=== PATIENT | male | born 1995 | race Caucasian/White ===

== ENCOUNTER 2025-03-22 10:44 | Outpatient (AMB) | payer OTHER, SELFPAY ==
--- NOTE | 2025-03-22 10:56 | A.OFFPC_ITS ---
Vital Signs 03/22/25 11:08 Height 5 ft 11.85 in Weight 281 lb 6 oz BMI 38.3 BP 119/67 Blood Pressure Location Rt brachial Position Sitting Pulse 85 Pulse Source Pulse Oximeter Temp 98.3 F Temp Source Oral Pulse Oximetry (%) 97 Oxygen Delivery Method Room Air Intake Visit Reasons: ACCOUNTING/FINANCE TUTOR-Obesity Intake Note: Wants to discuss depression and increased fatigue Accompanied by: Self / Same As Patient Allergies No Known Allergies Allergy (Verified 03/22/25 10:56) Medication List - Last Reconciled 03/24/25 by Corey Wong MD aripiprazole 15 mg PO DAILY ciclopirox 8% topical BEDTIME econazole nitrate 1% appl topical BID escitalopram oxalate 20 mg PO DAILY gabapentin 400 mg PO BID guanfacine ER 4 mg PO BEDTIME haloperidol 0.5 mg PO Q12H PRN hydroxyzine pamoate 50 mg PO Q6H PRN metoprolol succinate ER 50 mg PO BEDTIME trazodone 100 mg PO BEDTIME PRN Tobacco use date assessed: 03/22/25 Dental Screening Dental Screen Date: 03/22/25 Did you have a dental visit in the last 12 months?: Yes Was dental information given to patient?: Patient has dentist HPI HPI Comments History of Present Illness Details History of Present Illness The patient is a 29 year old male presenting with depression and to establish care. Depression and Anxiety: The patient reports ongoing depression for which his current treatments are not working. He has a history of hospitalization for homicidal ideations, depression, anxiety, and panic attacks. He recently completed an outpatient program in December and last saw his psychiatrist, Dr. Mejía, in January, who manages his medications. He has an appointment with a therapist later today. Tourette's Syndrome: The patient was diagnosed with Tourette's syndrome at age 8. His symptoms include motor tics such as shoulder tics, vocal tics like grunting, and echolalia. The condition is mostly controlled but not completely. Tachycardia: The patient has a history of high heart rate, for which he takes metoprolol. Medication-induced Restlessness: The patient experienced restlessness and an inability to sit still after being on a medication referred to as Breilart. He currently takes gabapentin for this symptom, which he finds helpful. Dermatophyte Infections: The patient reports having a fungal infection on his feet and a nail fungus on his toes. He uses econazole nitrate and ciclopirox for these conditions. Sleep Disturbance: Although the patient does not have trouble sleeping, he reports not waking up feeling refreshed. His aunt recently observed him gasping for air as he was dozing off on the couch. Surgical History: - Cubital tunnel release Medications: - Metoprolol: for high heart rate, taken at nighttime. - Trazodone: for sleep and depression, t aken as needed. - Hydroxyzine: for anxiety. - Haloperidol 0.5 mg: for Tourette's syn drome. - Guanfacine: for Tourette's syndrome. - Gabapentin 400 mg twice a day: for res tlessness. - Citalopram (Lexapro) 20 mg once daily: for anxiety and depression. - Econazole nitrate: for fungal infectio n on feet. - Ciclopirox: for nail fungus on toes. - Aripiprazole (Abilify): antipsychotic for depression. - Supplements: Slippery Elm, vitamin D, vitamin B-complex, magnesium drink, artemisia, and black walnut. Social History: - Substance Use: The patient denies smok ing. - He reports occasional alcohol use and use of weed. - He denies use of crack, coke, or PCP. - Employment: He is currently unemployed . 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 - Social Support: He lives by himself bu t has family that lives 10 minutes away. - Hobbies: The patient has started [employer] for fun. Past Medical History - Psychiatric: History of depression, an xiety, and panic attacks. - He has a history of hospitalization fo r homicidal ideations. - He was an outpatient in a program that discharged in December. - Neurological: Tourette's syndrome diag nosed at age 8. - History of medication-induced restless ness, which resolved with gabapentin. - Cardiovascular: History of unspecified high heart rate. - Dermatologic: History of fungal infect ion on feet and toenails. - Medical history: No history of blood p ressure issues, diabetes or seizures. Health Maintenance - Establishing primary care with this vi sit. - Orders placed for baseline laboratory studies including a complete blood count, comprehensive metabolic panel to check liver and kidney function, electrolytes, calcium, magnesium, thyroid function, B12, folate, vitamin D, hepatitis B, hepatitis C, HIV, and syphilis. - An EKG was ordered to evaluate his hea rt, given his medication regimen. - An at-home sleep study was ordered to evaluate for obstructive sleep apnea due to reports of unrefreshing sleep and gasping for air. - Patient is currently under the care of a psychiatrist, Dr. Mejía, for medication management and has a therapist appointment scheduled. med record summary This case concerns a 28-year-old male with a significant pre-existing psychiatric history including autism, Tourette's syndrome, obsessive-compulsive disorder (OCD), attention-deficit/hyperactivity disorder (ADHD), and anxiety.?He presented to the [facility] emergency department on November 01, 2024, due to a mental health crisis. His symptoms included not feeling well since Apri l, increased racing thoughts, thoughts of harming family members, and suicidal ideation, though he denied a specific plan.?The patient has a history of prior psychiatric admissions. The patient's crisis was precipitated by several factors, including significant recent trauma from the loss of both parents; his mother from cancer in 2022 and his father by suicide in 2016.?He reported feeling depressed and anxious for the preceding four months, describing it as an angry type of depression. ?The patient also disclosed daily struggles with family dynamics, feeling controlled and gaslighted by his family.?His sister corroborated that he does not open up to family easily. Upon initial evaluation in the emergency department, the patient was found to be alert and oriented with unremarkable physical exam findings and vital signs, except for a heart rate of 115.?Laboratory and toxicology screenings were normal.?A psychiatric evaluation assessed him with a mixed anxiety and dep ressive disorder and determined he was at a moderate to high risk due to suicidal and homicidal ideation, recent losses, and hopelessness.?While he endorsed suicidal ideation, he denied intent or a plan; however, he endorsed homicidal ideation with a plan but without intent. Due to the assessed risk, the patient was placed on an observation status and a Section 12 hold was initiated for his safety.?The crisis team recommended an inpatient psychiatric level of care (IPLOC) for safety, mood stabilization, and medication evaluation.?The patient and his family agreed with this plan.?While awaiting transfer, he remained calm and cooperative.?On November 02, 2024, after insurance authorization was secured,?he was transferred to an inpatient psychiatric facility. Regarding medications, the patient reportedly had no current prescriptions at the time of his November 01 admission,?but it was noted that his medication, Vraylar, would need to be brought from home.?The treatment plan included engaging in individual and group therapy during his inpatient stay.?Upon discharge, the plan was to arrange outpatient therapy and connect him with community resources. On November 25, 2024, the patient returned to the emergency department complaining of a high heart rate, which he noticed while walking.?He reported having recently started Abilify and had taken Sudafed that day and the day prior.?His pulse was elevated up to 136 bpm.?An EKG showed sinus tachycardia, and a chest X-ray was normal.?The tachycardia was attributed to Sudafed use, anxiety, or recent medication changes. He was discharged home with instructions to avoid Sudafed and follow up with his primary care provider.?Subsequent imaging on February 02, 2025, including X-rays of the cervical and lumbar spine, were unremarkable. In summary, this is a 28-year-old male with a complex psychiatric history who required inpatient stabilization for an acute crisis involving suicidal and homicidal ideation. His diagnoses include Suicidality, Anxiety, Mixed Anxiety and Depressive Disorder, OCD, ADHD, Autism Spectrum Disorder, Tourette's Syndrome, and Tachycardia.?As of his last encounter in November 2024, his medications included Abilify.?He was previously noted to be taking Vraylar.?Continued outpatient psychiatric care for medication management and therapy is recommended. [facility] Medical History (Updated 03/24/25 @ 17:57 by Corey Wong MD) Sleep apnea Depression Obesity Family history of mental disorder ADHD Family History Mother Cancer of fallopian tube Father Depression Suicide Social History Housing: Condominium Patient Tobacco Use Status: Never used Tobacco e-Cigarette/Vaping Use: Never Used service: No Current occupational status: unemployed Cognitive needs: No Hearing needs: No Vision needs: Yes (contacts) Questionnaire PHQ-9 Over the last 2 weeks, how often have you been bothered by any of the following problems? 1. Little interest or pleasure in doing things: nearly every day 2. Feeling down, depressed, or hopeless: nearly every day 3. Trouble falling or staying asleep, or sleeping too much: nearly every day 4. Feeling tired or having little energy: more than half the days 5. Poor appetite or overeating: nearly every day 6. Feeling bad about yourself - or that you are a failure or have let yourself or your family down: nearly every day 7. Trouble concentrating on things, such as reading the newspaper or watching television: more than half the days 8. Moving or speaking so slowly that other people could have noticed. Or the opposite - being so fidgety or restless that you have been moving around a lot more than usual: several days 9. Thoughts that you would be better off or of hurting yourself in some way: several days Total score: 21 Depression Screening Interpretation: Positive Depression Screening Follow-up: Existing condition and In treatment Depression Screening Done: Yes Source: Developed by Drs. Marcellus Arce, Magnolia Londono, Ortiz Ching and colleagues, with an educational oumar from [employer]. Thrive Questionnaire Date Thrive assessed: 03/22/25 I am a: Patient What is your living situation today?: I have a place to live, but I am worried about losing it in the future Within the past 12 months, did the food you bought not last and you didn't have the money to get more?: Never true Within the past 12 months, did you worry whether your food would run out before you got money to buy more?: Never true Do you have trouble paying for medicines?: No Do you have trouble getting transportation to medical appointments?: No Do you have trouble paying your heating and electricity bill?: No Do you have trouble taking care of your child, family member or friend?: No Do you have trouble with day-to-day activities such as bathing, preparing meals, shopping, managing finances, etc.?: Yes Are you currently unemployed and looking for a job?: Yes Are you interested in more education?: No Please select the resources that you would like help with: Job search/training Currently or been in a relationship where the following occur: No concerns reported THRIVE Score: 1 AUDIT C Alcohol Use Questionnaire (AUDIT-C) 1. How often do you have a drink containing alcohol?: 2-4 times a month 2. How many drinks containing alcohol do you have on a typical day when you are drinking?: 1 or 2 3. How often do you have six or more drinks on one occasion?: Never Total Score: 2 MICHAEL-7 AMB Questionnaire MICHAEL-7 Date MICHAEL - 7 assessed: 03/22/25 Feeling nervous, anxious, or on edge: 3 = Nearly every day Not being able to stop or control worryin = Nearly every day Worrying too much about different things: 3 = Nearly every day Trouble relaxin = More than half the days Being so restless that it is hard to sit still: 2 = More than half the days Becoming easily annoyed or irritable: 2 = More than half the days Feeling afraid as if something awful might happen: 3 = Nearly every day Total MICHAEL-7 score (0-4 normal; 5-9 mild; 10-14 moderate; 15-21 severe): 18 Source: Developed by Drs. Marcellus Arce, Magnolia Londono, Ortiz Ching and colleagues, with an educational oumar from [employer]. Review of Systems Narrative Review of Systems - Psychiatric: Reports depression, anxiety, panic attacks, and a history of homicidal ideations. - Neurological: Reports motor tics (shoulder tics), vocal tics (grunting), and echolalia. - Denies pain. - Constitutional: Reports not waking up feeling refreshed. - Respiratory: Reports gasping for air while falling asleep. - Cardiovascular: Reports a history of a high heart rate. - Dermatologic: Reports a fungal infection on his feet and toenails. 10-point ROS reviewed and negative except as noted in HPI Physical exam (Primary Care) Vital Signs: Last Vital Signs Temp 98.3 F 03/22/25 11:08 Pulse 85 03/22/25 11:08 BP 119/67 03/22/25 11:08 Pulse Ox 97 03/22/25 11:08 Oxygen Delivery Method Room Air 03/22/25 11:08 BMI result Body Mass Index 38.3 Tobacco/Smoking Status: Tobacco use Status Tobacco use date assessed 03/22/25 03/22/25 10:57 Patient Tobacco Use Status Never used Tobacco 03/22/25 10:57 e-Cigarette/Vaping Use Never Used 03/22/25 10:57 PHQ-9: PHQ-9 Score PHQ-9: Total score 21 03/24/25 17:55 Depression Screening Interpretation: Positive Depression Screening Follow-up: Existing condition and In treatment Thrive Assessment: Date of Thrive Assessment Date Thrive assessed 03/22/25 03/22/25 10:57 Currently or been in a relationship where the following occur: No concerns reported Narrative Physical Exam General: Well-appearing, in no acute distress. Vital signs: Within normal limits. HEENT: Normocephalic, atraumatic. PERRLA, EOMI. Conjunctiva clear, sclera anicteric. Oropharynx clear, mucous membranes moist. TMs intact bilaterally. Neck: Supple, no lymphadenopathy, no thyromegaly, no JVD or carotid bruits. Cardiovascular: RRR, normal S1/S2, no murmurs, rubs, or gallops. Peripheral pulses 2+ and symmetric. No edema. Respiratory: Lungs clear to auscultation bilaterally, no wheezes, rales, or rhonchi. Normal effort. Abdomen: Soft, non-tender, non-distended. Normoactive bowel sounds. No hepatos plenomegaly, no masses. MSK: Full range of motion, no joint swelling or deformity. Normal gait. Skin: Warm, dry, intact. No rashes, lesions, or pallor. Neuro: Alert and oriented x3. Cranial nerves II-XII intact. Strength 5/5 throughout. Sensation intact. Reflexes 2+ symmetric. Normal coordination and gait. Psych: Appropriate mood and affect. Normal judgment and insight. Patient reports depression and anxiety, currently managed with medication and therapy. Reports history of Tourette's syndrome with shoulder tics, grunting, and echolalia. Reports history of homicidal ideations and hospitalization for the same. Currently under psychiatric care. Office Procedures Flu Questionnaire Does the patient have a severe egg allergy?: No Does the patient have severe life threatening allergies?: No Does the patient have a fever or illness today?: No Has the patient ever had Guillain-Thompson Syndrome?: No Has the patient ever had any past reaction to a flu shot?: No Immunizations Fluarix [id number] (PF) 45 mcg (15 mcg x 3)/0.5 mL IM syringe Performing Provider: Corey Wong MD Performing Location: [facility] Documented (not given) by: Karissa Murguia CMA on 03/22/25 11:10 Reason Not Given: Patient Refused Coding Level of Care Code New Pt Level 4 (12982) Add On Problem Visit Only Diagnoses Anxiety F41.9 ADHD F90.9 Depression F32.A Obesity E66.9 Family history of mental disorder Z81.8 Tourettes disease F95.2 Tachycardia R00.0 Tinea B35.9 Sleep disturbance G47.9 Sleep apnea G47.30 Autism F84.0 OCD (obsessive compulsive disorder) F42.9 Assessment & Plan Assessment & Plan (1) Anxiety: Code(s): F41.9 - Anxiety disorder, unspecified (2) ADHD: Code(s): F90.9 - Attention-deficit hyperactivity disorder, unspecified type Category: Medical (3) Depression: Code(s): F32.A - Depression, unspecified Category: Medical (4) Obesity: Code(s): E66.9 - Obesity, unspecified Category: Medical (5) Family history of mental disorder: Code(s): Z81.8 - Family history of other mental and behavioral disorders (6) Tourettes disease: Code(s): F95.2 - Tourette's disorder Category: Medical (7) Tachycardia: Code(s): R00.0 - Tachycardia, unspecified Category: Medical (8) Tinea: Code(s): B35.9 - Dermatophytosis, unspecified Category: Medical (9) Sleep disturbance: Code(s): G47.9 - Sleep disorder, unspecified Category: Medical (10) Sleep apnea: Code(s): G47.30 - Sleep apnea, unspecified Category: Medical (11) Autism: Code(s): F84.0 - Autistic disorder Category: Medical (12) OCD (obsessive compulsive disorder): Code(s): F42.9 - Obsessive-compulsive disorder, unspecified Category: Medical Plan Consent The plan for a comprehensive blood workup, an EKG, and an at-home sleep study was discussed with the patient. The patient verbally consented to the plan. Patient was informed and verbally consented to the use of an ambient scribe for clinic note documentation during this visit. Plan 1. Depression And Anxiety - The patient will continue to be managed by his psychiatrist, Dr. Mejía, for his psychotropic medications. - He is scheduled to see his therapist today. 2. Establish Care / Health Maintenance - Will obtain baseline labs today, including CBC, CMP, liver function, kidney function, electrolytes, calcium, magnesium, thyroid, B12, folate, vitamin D, hepatitis B, hepatitis C, HIV, and syphilis via a urine test. - An EKG will be performed today to assess cardiac function due to his current medications. - Follow-up is scheduled in two weeks to review all results. 3. Suspected Obstructive Sleep Apnea - Due to reports of not feeling refreshed upon waking and an observation of him gasping for air while sleeping, an order will be placed for an at-home sleep study. 4. Tourette's Syndrome - The patient will continue current management with his psychiatrist. Discussion Notes I had a discussion with the patient, a 29-year-old male who is establishing primary care. We reviewed his chief complaint of depression and his extensive psychiatric history and medication list. I explained that while I will serve as his primary care physician, his psychiatric medications should continue to be managed by his psychiatrist. I recommended a comprehensive set of baseline labs and an EKG to be done today, and he agreed. We also discussed his unrefreshing sleep and the report of him gasping for air, for which I recommended an at-home sleep study, which he also agreed to. We will have a follow-up visit in two weeks to go over all the results. Patient Instructions - Please proceed to the lab to have your blood drawn today. - A medical assistant internal medicine will perform an EKG, a test to check your heart, here in the office today. - Someone will call you to arrange for an at-home sleep study kit to be sent to you. - Continue taking all of your current medications as prescribed by your doctors. - Continue with your scheduled appointments with your therapist and psychiatrist. - Please schedule a follow-up appointment in two weeks to review your test results. Medical Decision Making The patient is a 29-year-old male with a complex, chronic psychiatric history including depression, anxiety, and Tourette's syndrome, who presents to establish primary care. He is on a number of psychotropic medications managed by his psychiatrist, Dr. Mejía, but continues to experience significant depressive symptoms. Given his established psychiatric care, my primary goal for this visit is to conduct a baseline health assessment and investigate for medical conditions that could be contributing to or exacerbating his symptoms. The patient's report of not feeling refreshed after sleep, combined with a collateral report of him gasping for air, is highly suspicious for obstructive sleep apnea, which is a known contributor to fatigue and mood disturbances; an at-home sleep study is therefore warranted. Due to his use of multiple medications with potential cardiac side effects, a baseline EKG is prudent to screen for any abnormalities. Comprehensive lab work is ordered to screen for any underlying metabolic, endocrine, infectious, or nutritional deficiencies that might be impacting his health. A follow-up visit in two weeks will allow for a review of all diagnostic findings and further development of his long-term primary care plan. Total Time Statement Total time spent caring for the patient today includes pre-visit chart review, documentation, review of laboratory and diagnostic imaging results, medication reconciliation, medically necessary evaluation, counseling on diagnoses, care coordination, ordering appropriate tests and medications, review of tests performed by other providers, reporting test results to the patient, and communication with other healthcare providers. Orders: Orders Influenza [id number] Immunization 03/22/25 Z23 - Encounter for immunization Syphilis Screen 03/22/25 Z13.9 - Encounter for screening, unspecified Comprehensive Met. Panel 03/22/25 Z13.9 - Encounter for screening, unspecified HIV Ab/Ag 03/22/25 Z13.9 - Encounter for screening, unspecified UA CC w/rflx Micro + Cult 03/22/25 Z13.9 - Encounter for screening, unspecified Hemoglobin A1c 03/22/25 Z13.9 - Encounter for screening, unspecified Hepatitis B Surface Antibody 03/22/25 Z13.9 - Encounter for screening, unspecified RT home sleep study 03/22/25 G47.30 - Sleep apnea, unspecified Complete Blood Count Auto Diff 03/22/25 Z13.9 - Encounter for screening, unspecified Hepatitis B Surface Antigen 03/22/25 Z13.9 - Encounter for screening, unspecified Hepatitis C Antibody 03/22/25 Z13.9 - Encounter for screening, unspecified TSH reflex Free T4 03/22/25 Z13.9 - Encounter for screening, unspecified Lipid Panel 03/22/25 Z13.9 - Encounter for screening, unspecified Vitamin B12 and Folate 03/22/25 Z13.9 - Encounter for screening, unspecified Magnesium 03/22/25 Z13.9 - Encounter for screening, unspecified Vitamin D 25-OH (D2 and D3) 03/22/25 Z13.9 - Encounter for screening, unspecified AMB EKG-In Office 03/22/25 Z13.6 - Encounter for screening for cardiovascular disorders
[2025-03-22 11:08] VITALS: BP 119/67; PULSE 85; TEMP 36.8; O2SAT 97; BMI 38.3
--- OUTSIDE RECORDS SUMMARY | 2025-03-22 13:42 | XMS_ITS | Clinical Summary ---
Author Organization Formerly [facility] Address [address] [place] [address] Care Team Providers Care Food Trades Assistants Name Role Phone Toni Echevarria MD Primary Care Provider [phone] Allergies No known active allergies Medications * This document contains information received from the source organization and may not represent a complete record from that organization. escitalopram (LEXAPRO) 20 MG tablet Take 1 tablet (20 mg total) by mouth nightly. 07/30/2022 Active Vraylar 3 MG capsule Take 2 capsules (6 mg total) by mouth daily. 08/14/2022 Active guanFACINE (INTUNIV) 4 MG 24 hr tablet Take 1 tablet (4 mg total) by mouth every morning. 06/24/2022 Active clonazePAM (KlonoPIN) 0.5 MG tabletIndicatio ns:Tourette's syndrome Take 1 tablet (0.5 mg total) by mouth 2 times a day. 60 tablet 12/13/2023 Active gabapentin (NEURONTIN) 400 MG capsule Take 1 capsule (400 mg total) by mouth nightly. 10/10/2022 Active topiramate (TOPAMAX) 25 MG tabletIndicatio ns:Tourette's syndrome 1 tab in the morning and 1.5 tabs for second dose for 1 week, and then 1.5 tabs twice daily. 270 tablet 3 04/17/2024 Active oxyCODONE (ROXICODONE) 5 MG immediate release tabletIndicatio ns:Cubital tunnel syndrome on left Take 1 tablet (5 mg total) by mouth every 4 (four) hours as needed for severe pain. 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 Immunizations Immunization Administration Dates Next Due Covid-19 MRNA Vaccine - Pfizer 12+ (Purple Cap) 08/31/2020,08/05/2020 Family History Medical History Relation Name Comments Depression Father Suicide completion Father Cancer Mother No Known Problems Sister Relation Name Status Comments Father Mother Sister Social History Tobacco Use Types Packs/Day Years Used Date Smoking Tobacco: Never Smokeless Tobacco: Never Tobacco Cessation:Counseling Given: Not Answered Alcohol Use Standard Drinks/Week Comments Not Currently 0 (1 standard drink = 0.6 oz pur e alcohol) Social PHQ-2 Answer Date Recorded PHQ-2 Total Score 2 06/01/2024 Education Answer Date Recorded What is the highest level of school you have completed or the highest degree you have received? 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 Not on file Not on file Last Filed Vital Signs Vital Sign Reading Time Taken Comments Blood Pressure 122/76 06/05/2024 10:30 AM EST Pulse 80 06/05/2024 10:30 AM EST Temperature - - Respiratory Rate - - Oxygen Saturation 95% 06/05/2024 10:30 AM EST Inhaled Oxygen Concentration - - Weight 108 kg (239 lb) 01/31/2024 4:19 PM EDT Height 182.9 cm (6') 01/31/2024 4:19 PM EDT Body Mass Index 32.41 01/31/2024 4:19 PM EDT Plan of Treatment Health Maintenance Due Date Last Done Comments Hepatitis C Virus Screening 1993 HIV Screening 2006 DTaP/Tdap/Td Vaccines (1 - Tdap) 2012 Hepatitis B Vaccines (1 of 3 - 19+ 3-dose series) 2012 Influenza Vaccine 11/03/2024 04/23/2023, , 01/13/2022, Additional history exists COVID-19 Vaccine ( season) 2024 04/23/2023, 04/27/2022, 01/13/2022, Additional history exists HPV Vaccines (No Doses Required) Completed Pneumococcal Vaccine: Pediatric (0-5 Years) and At-Risk Patients (6 to 49 Years) Aged Out No longer eligible based on patient's age to complete this topic Care Teams Food Trades Assistants Relationship Specialty Start Date End Date Toni Echevarria MD [address] [place] [id number] PCP - General Internal Medicine 05/02/24 Minda Kemp Psychiatry, General 05/25/23
--- OUTSIDE RECORDS SUMMARY | 2025-03-22 13:42 | XMS_ITS ---
[facility] Results Test Name/Text Value Interpretation Date Range Source RDW RBC Auto-Rto 13.3 % Normal 04/25/2024 11 - 15 [facility] EST Eosinophil/leuk NFr Bld Auto 1.8 % Normal 04/25/2024 [facility] Eosinophil # Bld Auto 92.0 cells/uL Normal 04/25/2024 15 - 500 [facility] RBC # Bld Auto 5.11 Million/uL Normal 04/25/2024 4.2 - 5. 8 [facility] Hgb Bld-mCnc 15.5 g/dL Normal 04/25/2024 13.2 - 17.1 [facility] T PMV Bld Froilan-Jacinda 11.6 fL Normal 04/25/2024 7.5 - 12.5 [facility] Neutrophils # Bld Auto 2805.0 cells/uL Normal 04/25/2024 1500 - 7800 [facility] Monocytes/leuk NFr Bld Auto 8.1 % Normal 04/25/2024 [facility] MCH RBC Qn Auto 30.3 pg Normal 04/25/2024 27 - [address] Basophils/leuk NFr Bld Auto 0.8 % Normal 04/25/2024 [facility] WBC # Bld Auto 5.1 Thousand/uL Normal 04/25/2024 3.8 - 10 .8 [facility] MCV RBC Auto 88.8 fL Normal 04/25/2024 80 - 100 [facility] Lymphocytes/leuk NFr Bld Auto 34.3 % Normal 04/25/2024 [facility] Platelet # Bld Auto 219.0 Thousand/uL Normal 04/25/2024 140 - 400 [facility] Hct VFr Bld Auto 45.4 % Normal 04/25/2024 38.5 - 50 [facility] EST Lymphocytes # Bld Auto 1749.0 cells/uL Normal 04/25/2024 850 - 3900 [facility] MCHC RBC Auto-mCnc 34.1 g/dL Normal 04/25/2024 32 - 36 [facility] Basophils # Bld Auto 41.0 cells/uL Normal 04/25/2024 0 - 200 [facility] Monocytes # Bld Auto 413.0 cells/uL Normal 04/25/2024 200 - 950 [facility] Neutrophils/leuk NFr Bld Auto 55.0 % Normal 04/25/2024 [facility] LDLc SerPl Calc-mCnc 77.0 mg/dL (calc) Normal 04/25/2024 [facility] Cholest SerPl-mCnc 152.0 mg/dL Normal 04/25/2024 - 200 [facility] NonHDLc SerPl-mCnc 96.0 mg/dL (calc) Normal 04/25/2024 - 130 [facility] HDLc SerPl-mCnc 56.0 mg/dL Normal 04/25/2024 - QU EST Cholest/HDLc SerPl 2.7 (calc) Normal 04/25/2024 - 5 [facility] Trigl SerPl-mCnc 106.0 mg/dL Normal 04/25/2024 - 150 [facility] BUN/Creat SerPl SEE NOTE: Normal 04/25/2024 6 - [address] ALP SerPl-cCnc 66.0 U/L Normal 04/25/2024 36 - 130 [facility] T BUN SerPl-mCnc 15.0 mg/dL Normal 04/25/2024 7 - [address] Creat SerPl-mCnc 1.05 mg/dL Normal 04/25/2024 0.6 - 1.26 [facility] ALT SerPl-cCnc 29.0 U/L Normal 04/25/2024 9 - 46 [facility] T Calcium SerPl-mCnc 10.1 mg/dL Normal 04/25/2024 8.6 - 10. 3 [facility] Potassium SerPl-sCnc 4.1 mmol/L Normal 04/25/2024 3.5 - 5 .3 [facility] Sodium SerPl-sCnc 139.0 mmol/L Normal 04/25/2024 135 - 14 6 [facility] Albumin/Glob SerPl 2.7 (calc) Above high normal 04/25/2024 1 - 2.5 [facility] Prot SerPl-mCnc 7.1 g/dL Normal 04/25/2024 6.1 - 8.[address] Bilirub SerPl-mCnc 1.2 mg/dL Normal 04/25/2024 0.2 - 1.2 [facility] Globulin Ser Calc-mCnc 1.9 g/dL (calc) Normal 04/25/2024 1.9 - 3.7 [facility] AST SerPl-cCnc 20.0 U/L Normal 04/25/2024 10 - 40 [facility] T CO2 SerPl-sCnc 29.0 mmol/L Normal 04/25/2024 20 - 32 QU EST eGFRcr SerPlBld CKD-EPI 2020 98.0 mL/min/1.73m2 Normal 04/25/2024 - [facility] Glucose SerPl-mCnc 100.0 mg/dL Above high normal 04/25/2024 65 - 99 [facility] Albumin SerPl-mCnc 5.2 g/dL Above high normal 04/25/2024 3. 6 - 5.1 [facility] Chloride SerPl-sCnc 103.0 mmol/L Normal 04/25/2024 98 - 1 10 [facility] History of Medication Use Medication Directions Dispensed Refills Start Date End Date Status Zepbound 10 mg/0.5 mL subcutaneous pen injector Inject 10 mg every week by subcutaneous route. 5 11/12/19 25 completed Zepbound 7.5 mg/0.5 mL subcutaneous pen injector Inject 7.5 mg every week by subcutaneous route. 5 11/12/19 25 completed Zepbound 5 mg/0.5 mL subcutaneous pen injector 5 mg sc weekly 5 08/10/19 25 completed Zepbound 2.5 mg/0.5 mL subcutaneous pen injector Inject 2.5 mg every week by subcutaneous route. 5 07/15/19 25 completed cephalexin (KEFLEX) 500 MG capsule Take 1 capsule (500 mg total) by mouth 2 (two) times a day. 5 active oxyCODONE (ROXICODONE) 5 MG immediate release tablet Take 1 tablet (5 mg total) by mouth every 4 (four) hours as needed for severe pain. Max Daily Amount: 30 mg 5 active valbenazine (INGREZZA) 40 MG tablet Take 1 capsule (40 mg total) by mouth daily. 4 03/24/20 24 active topiramate (TOPAMAX) 25 MG tablet 1 tab in the morning and 1.5 tabs for second dose for 1 week, and then 1.5 tabs twice daily. 4 04/16/19 25 active topiramate (TOPAMAX) 25 MG tablet Take 1 tablet (25 mg total) by mouth 2 (two) times a day. 4 10/13/19 24 active predniSONETake 2 Tablet (oral) 1 time per day for 5 [id number] time per [id number] 20mg 4 suspended gabapentin (NEURONTIN) 400 MG capsule Take 1 capsule (400 mg total) by mouth nightly. 3 active gabapentin (NEURONTIN) 100 MG capsule Take 1 capsule (100 mg total) by mouth nightly. 3 01/31/20 24 active Vraylar 3 MG capsule Take by mouth daily. 3 active Vraylar 3 MG capsule Take 2 capsules (6 mg total) by mouth daily. 3 active escitalopram (LEXAPRO) 20 MG tablet Take 1 tablet (20 mg total) by mouth nightly. 3 active zolpidem (AMBIEN) 10 MG tablet Take 1 tablet (10 mg total) by mouth nightly as needed. 3 05/25/19 24 active guanFACINE (INTUNIV) 4 MG 24 hr tablet Take 1 tablet (4 mg total) by mouth every morning. 3 active levothyroxine (SYNTHROID, LEVOTHROID) 150 MCG tablet Take 1 tablet (150 mcg total) by mouth daily. 3 05/25/19 24 active PANTOprazole (PROTONIX) 40 MG EC tablet Take 1 tablet (40 mg total) by mouth daily as needed. 3 01/31/20 24 active clonazePAM (KlonoPIN) 0.5 MG tablet TAKE 1 TABLET BY MOUTH NIGHTLY 3 06/29/19 23 aborted clonazePAM (KlonoPIN) 0.5 MG tablet Take 1 tablet (0.5 mg total) by mouth 2 times a day. 2 12/13/19 24 active metoprolol succinate ER 100 mg tablet,extended release 24 hr Take 1 tablet every day by oral route at bedtime. 12/04/19 25 completed Wegovy 0.25 mg/0.5 mL subcutaneous pen injector INJECT 0.5ML UNDER THE SKIN ONCE A WEEK 03/05/20 completed Wegovy 1 mg/0.5 mL subcutaneous pen injector INJECT 0.5 ML (1 MG) UNDER THE SKIN EVERY 7 DAYS 03/05/20 completed glycopyrrolate (ROBINUL) 2 MG tablet Take 1 tablet (2 mg total) by mouth daily. Take 3 tabs (6 mg total) daily 01/31/20 active hydrOXYzine HCl (ATARAX) 10 MG tablet Take 1 tablet (10 mg total) by mouth. 01/31/20 active dupilumab (DUPIXENT) 300 MG/2ML prefilled syringe Inject under the skin once a week. 05/25/19 active omega-3 fatty acids 1000 MG Cap capsule Take 2 capsules (2,000 mg total) by mouth daily as needed. 05/25/19 active escitalopram (LEXAPRO) 5 MG tablet Take 1 tablet (5 mg total) by mouth daily. 09/09/19 aborted guanFACINE (INTUNIV) 1 MG 24 hr tablet Take 5 tablets (5 mg total) by mouth daily. 09/09/19 active levothyroxine (SYNTHROID, LEVOTHROID) 175 MCG tablet Take 1 tablet (175 mcg total) by mouth daily on an empty stomach. 09/09/19 active OLANZapine (ZyPREXA) 2.5 MG tablet Take 1 tablet (2.5 mg total) by mouth nightly. 09/09/19 23 aborted clonazePAMTakeNo helena e recordedNo form recordedNo frequency recordedNo route recordedNo set duration recordedNo set duration amount recordedactiveNo dosage strength recordedNo dosage strength units of measure recorded active escitalopram oxalateTakeNo date recordedNo form recordedNo frequency recordedNo route recordedNo set duration recordedNo set duration amount recordedactiveNo dosage strength recordedNo dosage strength units of measure recorded active gabapentinTakeNo helena e recordedNo form recordedNo frequency recordedNo route recordedNo set duration recordedNo set duration amount recordedactiveNo dosage strength recordedNo dosage strength units of measure recorded active VraylarTakeNo date recordedNo form recordedNo frequency recordedNo route recordedNo set duration recordedNo set duration amount recordedactiveNo dosage strength recordedNo dosage strength units of measure recorded active guanFACINETakeNo helena e recordedNo form recordedNo frequency recordedNo route recordedNo set duration recordedNo set duration amount recordedactiveNo dosage strength recordedNo dosage strength units of measure recorded active aripiprazole 10 mg tablet TAKE 1 TABLET BY MOUTH ONCE DAILY STOP VRAYLAR active aripiprazole 15 mg tablet TAKE 1 TABLET BY MOUTH ONCE DAILY active cetirizine 10 mg tablet TAKE 1 TABLET BY MOUTH ONCE DAILY FOR 7 DAYS active ciclopirox 8 % topical solution APPLY ONTO AFFECTED NAILS EVERY NIGHT AT BEDTIME FOR 48-52 WEEKS. WASH NAILS WITH A SOAP AND WATER SCRUB TO REMOVE EXCESS MEDICINE AT LEAST ONCE PER WEEK active econazole nitrate 1 % topical cream APPLY CREAM TOPICALLY BETWEEN TOES TWICE DAILY FOR 4 TO 6 WEEKS active escitalopram 20 mg tablet 20 mg every day by oral route. active fluticasone propionate 50 mcg/actuation nasal spray,suspension USE 1 SPRAY(S) IN EACH NOSTRIL TWICE DAILY NEEDED FOR 7 DAYS FOR CONGESTION active gabapentin 400 mg capsule 800 mg every day by oral route. active guanfacine ER 4 mg tablet,extended release 24 hr 4 mg every day by oral route. active Haldol 0.5 mg tablet Take 1 tablet twice a day by oral route. active hydroxyzine pamoate 50 mg capsule TAKE 1 CAPSULE BY MOUTH EVERY 6 HOURS NEEDED active Ingrezza 40 mg capsule Take 2 capsules every day by oral route. active metoprolol succinate ER 50 mg capsule sprinkle, ext. release 24 hr Take 1 capsule every day by oral route at bedtime. active metoprolol succinate ER 50 mg tablet,extended release 24 hr Take 1 tablet every day by oral route at bedtime. active topiramate 25 mg tablet 75 mg twice a day by oral route. active trazodone 100 mg tablet Take 1 tablet twice a day by oral route. active Vraylar 6 mg capsule 6 mg every day by oral route. active glycopyrrolate (ROBINUL) 2 MG tablet Take 2 tablets (4 mg total) by mouth daily. active Problems Problem Status Onset Date Problem Type Date of Resolution Source Depression, unspecified active ProblemAct [facility] Carpal tunnel syndrome, left upper limb active 2023-04-09 ProblemAct [facility] Bipolar disorder, unspecified active ProblemAct [facility] Anxiety disorder, unspecified active ProblemAct [facility] Dizziness and giddiness active 2023-05-02 ProblemAct [facility] Tourette's disorder active ProblemAct [facility] Viral infection, unspecified active 2023-05-02 ProblemAct [facility] Moderate depressed bipolar I disorder active 2024-11-11 ProblemAct [facility] Tourette disease active 2022-02-18 ProblemAct [facility] Itching active 2022-02-18 ProblemAct [facility] Low back pain active 2022-02-10 ProblemAct [facility] T Other specified hypothyroidism active 2022-02-18 ProblemAct [facility] Hyperhidrosis active 2022-02-18 ProblemAct [facility] T Anxiety active 2022-02-18 ProblemAct [facility] Cubital tunnel syndrome on left active EncounterDiagnosisAct [facility] Immunizations Vaccine Date Source Lot Number Status Influenza, injectable, Madin Gisselle Canine Kidney, preservative free, quadrivalent 04/23/2023 KAMERON [id number] completed Influenza, injectable, Madin [place] Canine Kidney, preservative free, quadrivalent 04/23/2023 KAMERON [id number] completed SARS-COV-2 (COVID-19) vaccin e, subunit, recombinant spike protein-nanoparticle+Matrix-M1 Adjuvant, preservative free, 5 mcg/0.5 mL dose 04/23/2023 KAMERON [id number] completed SARS-COV-2 (COVID-19) vaccin e, subunit, recombinant spike protein-nanoparticle+Matrix-M1 Adjuvant, preservative free, 5 mcg/0.5 mL dose 04/23/2023 KAMERON [id number] completed hepatitis B vaccine, adult dosage 08/27/2022 BERT_DEL [id number] completed hepatitis B vaccine, adult dosage 08/27/2022 CT_DEL [id number] completed tetanus toxoid, reduced diph theria toxoid, and acellular pertussis vaccine, adsorbed 08/27/2022 CT_DEL [id number] completed tetanus toxoid, reduced diph theria toxoid, and acellular pertussis vaccine, adsorbed 08/27/2022 CT_DEL [id number] completed SARS-COV-2 (COVID-19) vaccin e, mRNA, spike protein, LNP, bivalent, preservative free, 50 mcg/0.5 mL dose 04/27/2022 KAMERON [id number] completed SARS-COV-2 (COVID-19) vaccin e, mRNA, spike protein, LNP, bivalent, preservative free, 50 mcg/0.5 mL dose 04/27/2022 [facility] [id number] completed hepatitis A and hepatitis B vaccine 02/23/2022 CT_DEL completed hepatitis A and hepatitis B vaccine 02/23/2022 CT_DEL completed Human Papillomavirus 9-valent vaccine 02/23/2022 CT_DEL completed Human Papillomavirus 9-valent vaccine 02/23/2022 CTJESUS completed Influenza, injectable, Madin Gisselle Canine Kidney, preservative free, quadrivalent 01/13/2022 CT_DEL [id number] completed Influenza, injectable, Madin Gisselle Canine Kidney, preservative free, quadrivalent 01/13/2022 CT_DEL [id number] completed SARS-COV-2 (COVID-19) vaccin e, mRNA, spike protein, LNP, bivalent, preservative free, 50 mcg/0.5 mL dose 01/13/2022 CT[facility] [id number] completed SARS-COV-2 (COVID-19) vaccin e, mRNA, spike protein, LNP, bivalent, preservative free, 50 mcg/0.5 mL dose 01/13/2022 K[facility] [id number] completed Human Papillomavirus 9-valent vaccine 11/25/2020 [facility] [id number] completed Human Papillomavirus 9-valent vaccine 11/25/2020 [facility] [id number] completed Influenza, injectable, quadr ivalent, preservative free 11/25/2020 [facility] [id number] completed Influenza, injectable, quadr ivalent, preservative free 11/25/2020 [facility] [id number] completed SARS-COV-2 (COVID-19) vaccin e, mRNA, spike protein, LNP, preservative free, 30 mcg/0.3mL dose 08/31/2020 CTJ[facility] [id number] completed SARS-COV-2 (COVID-19) vaccin e, mRNA, spike protein, LNP, preservative free, 30 mcg/0.3mL dose 08/31/2020 [facility] [id number] completed Covid-19 MRNA Vaccine - Pfiz er 12+ (Purple Cap) 08/31/2020 [facility] [id number] completed SARS-COV-2 (COVID-19) vaccin e, mRNA, spike protein, LNP, preservative free, 30 mcg/0.3mL dose 08/05/2020 [facility] [id number] completed SARS-COV-2 (COVID-19) vaccin e, mRNA, spike protein, LNP, preservative free, 30 mcg/0.3mL dose 08/05/2020 [facility] [id number] completed Covid-19 MRNA Vaccine - Pfiz er 12+ (Purple Cap) 08/05/2020 [facility] [id number] completed tetanus toxoid, reduced diph theria toxoid, and acellular pertussis vaccine, adsorbed 04/01/2020 CT_DEL [id number] completed tetanus toxoid, reduced diph theria toxoid, and acellular pertussis vaccine, adsorbed 04/01/2020 CT[facility] [id number] completed Influenza, injectable, quadr ivalent, preservative free 01/01/2020 [facility] [id number] completed Influenza, injectable, quadr ivalent, preservative free 01/01/2020 [facility] [id number] completed Influenza, injectable, quadr ivalent, preservative free 01/18/2019 [facility] [id number] completed Influenza, injectable, quadr ivalent, preservative free 01/18/2019 [facility] [id number] completed Influenza, injectable, quadr ivalent, preservative free 01/31/2018 [facility] [id number] completed Influenza, injectable, quadr ivalent, preservative free 01/31/2018 [facility] [id number] completed Encounters Encounter Type Encounter Reason Primary Diagnosis Location Date Ambulatory [facility] 12/19/2024 Ambulatory Lesion of ulnar nerve, left upper limb Lesion of ulnar nerve, left upper limb [facility] 11/30/2024 Ambulatory [facility] 11/29/2024 Ambulatory [facility] 11/07/2024 Ambulatory Lesion of ulnar nerve, left upper limb Lesion of ulnar nerve, left upper limb [facility] 08/17/2024 Ambulatory Other symptoms and signs involving the musculoskeletal system Other symptoms and signs involving the musculoskeletal system [facility] 07/19/2024 Ambulatory Other symptoms and signs involving the musculoskeletal system Other symptoms and signs involving the musculoskeletal system [facility] 07/12/2024 Ambulatory Stiffness of left elbow, not elsewhere classified Stiffness of left elbow, not elsewhere classified [facility] 07/05/2024 Ambulatory OT Treatment OT Treatment [facility] 06/28/2024 Ambulatory [facility] 06/25/2024 Ambulatory [facility] 06/23/2024 Ambulatory Pain Pain [facility] 06/22/2024 Ambulatory Lesion of ulnar nerve, left upper limb Lesion of ulnar nerve, left upper limb [facility] 06/21/2024 Ambulatory Lesion of ulnar nerve, left upper limb Lesion of ulnar nerve, left upper limb [facility] 06/14/2024 Ambulatory [facility] 06/10/2024 Ambulatory Lesion of ulnar nerve, left upper limb Lesion of ulnar nerve, left upper limb [facility] 06/07/2024 Ambulatory Tourette's disorder Tourette's disorder [facility] 06/05/2024 Ambulatory Disruption of external operation (surgical) wound, not elsewhere classified, initial encounter Disruption of external operation (surgical) wound, not elsewhere classified, initial encounter [facility] 05/30/2024 Ambulatory MODIFY Lesion of ulnar nerve, left upper limb [facility], [facility] 05/22/2024 Ambulatory Lesion of ulnar nerve, left upper limb Lesion of ulnar nerve, left upper limb [facility] 05/02/2024 Ambulatory Follow-up Follow-up [facility] 04/27/2024 Ambulatory [facility] 04/24/2024 Ambulatory [facility] 04/18/2024 Ambulatory [facility] 04/18/2024 Ambulatory Lesion of ulnar nerve, left upper limb Lesion of ulnar nerve, left upper limb [facility] 04/13/2024 Ambulatory Tourette's disorder Tourette's disorder [facility] 01/31/2024 Ambulatory Tourette's disorder Tourette's disorder [facility] 05/25/2023 Ambulatory [facility] 05/02/2023 Ambulatory Tourette's disorder [facility] 09/08/2022 Ambulatory Tourette's disorder [facility] 04/02/2022 Care Team Organization Name Specialty Phone Email Start Date End Da te [facility] 02/13/2025 [facility] 01/25/2025 [facility] 11/30/202412/05 [facility], [facility] 05/03/2024 [facility] Toni Echevar[facility] 05/02/2024 [facility] 04/25/2024 [facility] [employer] 04/06/2024 [facility] NO PROVIDER Primary Care 04/25/2023 [facility] NO PROVIDER Primary Care 04/25/2023 10/22/2024 [facility] 04/09/2023 10/22/2024 [facility] 04/09/2023 04/09/2023 [facility] 02/04/2023 025 [facility] [employer] MARTELL DA SILVA Primary Care 09/08/20222024 [facility] Martell Da Silva [facility] 09/08/20222023 [facility] 09/05/2022 [facility] Primary Care 06/10/2022 11/22/2023 [facility] QUETA CAO Primary Care 04/02/202212/29 [facility] QUETA CAO Primary Care 01/15/202206/12 [facility] Martell Da Silva [facility]
--- OUTSIDE RECORDS SUMMARY | 2025-03-22 13:42 | XMS_ITS | Encounter Summary ---
Author Organization [facility] Address [address] [place] [address] Care Team Providers Care Secured Entrance Monitor Name Role Phone Martell Corral DO Primary Care Provider [phone] Toni Echevarria MD Primary Care Provider [phone]- [phone] Encounter Details Date Type Department Care Team (Late st Contact Info) Description 03/27/2024 Scanned Document [facility] Neurology [address] [place] [id number] Neurology, Scan Social History Tobacco Use Types Packs/Day Years Used Date Smoking Tobacco: Never Smokeless Tobacco: Never Alcohol Use Standard Drinks/Week Comments Not Currently 0 (1 standard drink = 0.6 oz pur e alcohol) Social PHQ-2 Answer Date Recorded PHQ-2 Total Score 0 01/29/2024 Education Answer Date Recorded What is the [...] 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
--- OUTSIDE RECORDS SUMMARY | 2025-03-22 13:42 | XMS_ITS | Encounter Summary ---
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
--- OUTSIDE RECORDS SUMMARY | 2025-03-22 13:43 | XMS_ITS | Encounter Summary ---
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
--- OUTSIDE RECORDS SUMMARY | 2025-03-22 13:43 | XMS_ITS | Encounter Summary ---
Author Organization [facility] Address [address] [place] [address] Care Team Providers Care Brief Writer Name Role Phone Neal Gomez MD Primary Care Provider [phone]- [phone] Martell Corral DO Primary Care Provider Toni Echevarria MD Primary Care Provider +1- [phone] Encounter Details Date Type Department Care Team (Late st Contact Info) Description 12/24/2021 Scanned Document [facility] Neurology [address] [phone] Raffy Wade MD [address] [place] [address] [address] [place], [place] [id number] Social History Tobacco Use Types Packs/Day Years Used Date Smoking Tobacco: Never Assessed Sex and Gender Information Value Date Recorded Sex Assigned at Male 05/24/2023 2:50 PM EST Legal Sex Male 1:55 PM EDT Gender Identity Male 08/01/2021 5:37 PM EDT Sexual Orientation Heterosexual (straight) 08/01 5:37 PM EDT documented as of this encounter Plan of Treatment Not on file documented as of this encounter Visit Diagnoses Not on filedocumented in this encounter Care Teams Brief Writer Relationship Specialty Start Date End Date Neal Gomez MD [address] [place] [address] PCP - General Psychiatry, General 11/26/21 09/07/22 Martell Corral DO [address] [place] [address] PCP - General Internal Medicine 09/08/22 05/01/24 Toni Echevarria MD [address] [place] [address] PCP - General Internal Medicine 05/02/24 Minda Kemp Psychiatry, General 05/25/23 documented as of this encounter
--- OUTSIDE RECORDS SUMMARY | 2025-03-22 13:43 | XMS_ITS | Encounter Summary ---
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
--- OUTSIDE RECORDS SUMMARY | 2025-03-22 13:43 | XMS_ITS | Encounter Summary ---
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
--- OUTSIDE RECORDS SUMMARY | 2025-03-22 13:43 | XMS_ITS | Clinical Summary ---
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 Other specified hypothyroidism 02/18/2022 D X:Other specified hypothyroidism Social History Tobacco Use Types Packs/Day Years Used Date Smoking Tobacco: Never Smokeless Tobacco: Never Alcohol Use Standard Drinks/Week Comments Not Asked 0 (1 standard drink = 0.6 oz pur e alcohol) Housing Instability Answer Date Recorde d Are you worried that in the next 2 months you may not have stable housing? Yes 02/14/2025 Food Access & Nutrition Answer Date Rec orded Do you have access to a vari ety of food including fruits and vegetables? No 02/14/2025 Access to Healthcare Answer Date Record ed Within the last 3 months, karime ross many times did you visit the emergency department for your medical care? 1 02/14/2025 Health Literacy Answer Date Recorded How often do you need to hav e someone help you when you read instructions, pamphlets, or other written material from your doctor or pharmacy? Never 02/14/2025 Caregiver: How often do you need to have someone help you when you read instructions, pamphlets, or other written material from your doctor or pharmacy? Not on file 02/14/2025 Financial Risk Answer Date Recorded How hard is it for you to pa y for the very basics like food, housing, medical care, and air conditioning / heating? Hard 02/14/2025 Transportation Answer Date Recorded Has the lack of transportati on kept you from meetings, work, or from getting things needed for daily living? No Has the lack of transportati on kept you from medical appointments or from getting medications? No 02/14/2025 Social Isolation Answer Date Recorded How often do you feel lonely or isolated from th ose around you? Always 02/14/2025 Food Risk Answer Date Recorded Within the past 12 months we worried whether our food would run out before we got money to buy more. Sometimes true 025 Within the past 12 months th e food we bought just didn't last and we didn't have money to get more. Often true 02/14/2025 Dependent Care Answer Date Recorded Do you need help finding or paying for care for your loved ones. For example, childcare teacher or elderly care for an older adult? Patient declined 02/14/2025 Education Answer Date Recorded Do you think completing more education or training, like finishing a GED, going to college, or learning a trade, would be helpful for you? Yes 02/14/2025 Employment and Income Answer Date Recor ded During the last four weeks, have you been actively looking for work? No 02/14/2025 Living Situation Answer Date Recorded What is your living situation? Unrecognized valu e 02/14/2025 Sex and Gender Information Value Date Recorded Sex Assigned at Male 06/15/2022 6:24 AM EDT Legal Sex Male 9:12 AM EST Gender Identity Male 06/15/2022 6:24 AM EDT Sexual Orientation Straight 06/15/2022 6: 24 AM EDT Last Filed Vital Signs Vital Sign Reading Time Taken Comments Blood Pressure 137/87 04/25/2023 11:13 AM EST Pulse 90 04/25/2023 11:13 AM EST Temperature - - Respiratory Rate - - Oxygen Saturation - - Inhaled Oxygen Concentration - - Weight 112 kg (246 lb 6.4 oz) 11/22/2023 3:59 PM EDT Height 182.9 cm (6') 04/25/2023 11:13 AM EST Body Mass Index 33.42 04/25/2023 11:13 AM EST Plan of Treatment Health Maintenance Due Date Last Done Comments DTaP,Tdap,and Td Vaccines (1 - Tdap) 2012 Hepatitis B Vaccines (1 of 3 - 19+ 3-dose series) 2012 HPV Vaccines (1 - 3-dose SCDM series) 2020 HIV Screening 03/08/2022 COVID-19 Vaccine ( season) 2024 04/27/2022, 01/13/2022, 08/31/2020, Additional history exists Influenza Vaccine (#1) 2024 Social Influencers of Health Screening 02/14/2026 02/14/2025 Cholesterol Screening (Lipid Panel) 03/07/2027 03/07/2022, 07/16/2018, 12/22/2017, Additional history exists RSV Immunization Adult Patients (1 - 1-dose 75+ series) 2068 Hepatitis C Screening Completed 03/07/2022 Depression Screening Completed 02/14/2025 HIB Vaccines Aged Out No longer eligi ble based on patient's age to complete this topic Hepatitis A Vaccines Aged Out No long er eligible based on patient's age to complete this topic IPV Vaccines Aged Out No longer eligi ble based on patient's age to complete this topic MMR Vaccines Aged Out No longer eligi ble based on patient's age to complete this topic Meningococcal ACWY Vaccine Aged Out N o longer eligible based on patient's age to complete this topic Meningococcal B Vaccine Aged Out No l onger eligible based on patient's age to complete this topic Pneumococcal Vaccine: Pediatrics (0 to 5 Years) and At-Risk Patients (6 to 49 Years) Aged Out No longer eligible based on patient's age to complete this topic RSV Immunization Patients Under 20 months Aged Out No longer eligible based on patient's age to complete this topic Varicella Vaccines Aged Out No longer eligible based on patient's age to complete this topic Insurance [facility] PL[facility] Care Teams Net Technical Architect Relationship Specialty Start Date End Date Tristin Razo PA [address] [facility] [place] [address] PCP - General Internal Medicine 06/27/24
--- OUTSIDE RECORDS SUMMARY | 2025-03-22 13:43 | XMS_ITS | Encounter Summary ---
Author Organization [facility] Address [address] [place] [address] Care Team Providers Care Linen Room Custodian Name Role Phone Toni Echevarria MD Primary Care Provider +1- [phone] Encounter Details Date Type Department Care Team (Late st Contact Info) Description 05/26/2024 Scanned Document 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
--- OUTSIDE RECORDS SUMMARY | 2025-03-22 13:43 | XMS_ITS | Encounter Summary ---
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
== END 2025-03-22 11:54 | disposition home or self-care (01) ==
LOC: HO.HMCFMS 10:45
PROVIDERS: PCP Student in an Organized Health Care Education/Training Program; Visit Provider Student in an Organized Health Care Education/Training Program
DX: Z23 Encounter for immunization (principal)

== ENCOUNTER 2025-03-22 10:44 | Outpatient (REF) | payer OTHER, SELFPAY ==
[2025-03-22 14:16] LABS: MANUAL DIFF FLAG NO
[2025-03-22 14:22] LABS: Appearance Urine Clear; Glucose Urine UA Negative (Negative); PH 6.0 (5.0-9.0); Specific Gravity - Urine 1.020 (1.005-1.025); UMIC TRIGGER UACC YES
[2025-03-22 14:31] LABS: Hematocrit 45.0 % (42.0-52.0); Hemoglobin 15.7 g/dl (14.0-18.0); Imm Gran Abs Auto 0.02 X10*3/uL (0.00-0.03); Imm Gran Pct Auto 0.3 % (0.0-0.4); Lymphocytes Absolute Auto 1.9 X10*3/uL (1.2-4.9); Mean Corpuscular HGB Conc 34.9 g/dl (31.0-36.0); Mean Corpuscular Hemoglobin 29.9 pg (27.0-33.0); Mean Corpuscular Volume 85.7 fL (80.0-98.0); NRBC Abs Auto 0.000 X10*3/uL (0.0-0.012); NRBC Pct Auto 0.0 /100WBC (0.0-0.2); Platelet Count 235 X10*3/uL (160-400); Red Blood Count 5.25 X10*6/uL (4.60-5.80); White Blood Count 6.6 X10*3/uL (4.8-10.8)
[2025-03-22 14:44] LABS: Hemoglobin A1C 82.6757 umol/L
[2025-03-22 15:18] LABS: Folate 9.1 ng/mL (> or = 4.0); Vitamin B12 513 pg/mL (200-900)
[2025-03-22 15:30] LABS: Alanine Aminotransferase 111 U/L (0-40); Albumin Level 5.4 g/dL (3.5-5.0); Alkaline Phosphatase 66 U/L (39-117); Anion Gap 13 (12-20); Aspartate Amino Transferase 50 U/L (5-37); Blood Urea Nitrogen 15 mg/dL (9-16); Calcium 10.2 mg/dL (8.4-10.2); Carbon Dioxide 25 mmol/L (22-29); Chloride 104 mmol/L (96-108); Cholesterol 179 mg/dL (<200); Estimated Glomerular Filt Rate > 60; HDL Cholesterol 53 mg/dL (>40); Magnesium 2.0 mg/dL (1.6-2.6); Potassium 4.2 mmol/L (3.3-5.1); Sodium 138 mmol/L (135-145); Total Protein 7.7 g/dL (6.5-8.0); Triglycerides 135 mg/dL (<150)
--- OUTSIDE RECORDS SUMMARY | 2025-03-22 15:53 | XMS_ITS | Clinical Summary ---
Author Organization [facility] Address [address] [place] [address] [place] [address] Phone Care Team Providers Care Grievance Coordinator Name Role Phone Toni Echevarria MD Primary Care Provid er Encounters Date Type Department Care Team Description 12/27/2024 Telephone [facility] [address] [facility], [address] [place] [address] Unknown, Unknown, from Last 3 Months Social History Tobacco Use Types Packs/Day Years Used Date Smoking Tobacco: Never Assessed Sex and Gender Information Value Date Recorded Sex Assigned at Male 12/26/2024 3:13 PM EDT Legal Sex Male 3:12 PM EDT Gender Identity Male 12/26/2024 3:13 PM EDT Sexual Orientation Straight 12/26/2024 3: 13 PM EDT Plan of Treatment Not on file Medical Devices Not on file Insurance [facility] [place] [id number] [employer] POS [employer] POS [employer] POS [employer] POS [facility] Care Teams Grievance Coordinator Relationship Specialty Start Date End Date Toni Echevarria MD [address] [place] [address] PCP - General Family Medicine 12/26/24 Additional Source Comments The information contained in this document represents components of the legal health record. It is not the complete legal health record.[facility]
--- OUTSIDE RECORDS SUMMARY | 2025-03-22 15:53 | XMS_ITS | Data Portability ---
Author Organization [place] - [facility], [facility] Address [address] [place] [address] Assessment No assessment recorded. Plan of Treatment Reminders Order Date Submit Date Provider Last Modified By Organization Details Last Modified Time Details Appointments None recorded. Lab HbA1c (hemoglob in A1c), blood 2013 014 [facility], [address], [place], [address], 4 10:49:57 glucose, QN [mass/vol ume], serum or plasma 2013 014 [facility], [address], [place], [address], 4 10:49:57 CBC w/diff 2012 013 [facility], [address], [place], [address], 3 09:34:50 anaplasma phagocyto philum and ehrlichia chaffeens is antibody panel 2012 013 [facility], [address], [place], [address], 3 09:34:51 babesiosi s (igg, igm) 2012 013 [facility], [address], [place], [address], 3 09:34:51 babesia smear 2012 013 [facility], [address], [place], [address], 3 10:36:36 ESR 2012 013 MAYR [facility], [address], [place], [address], 3 09:34:51 monospot 2012 013 MARY [facility], [address], [place], [address], 3 09:34:51 C-reactiv e protein (CRP) 2012 013 MARY [facility], [address], [place], [address], 3 09:34:51 lyme screen (igg, igm) w/ reflex WB 2012 013 [facility], [address], [place], [address], 3 10:36:36 culture, superfici al wound 2011 012 [facility], [address], [place], [address], 3 03:14:29 Referral internal medicine referral 2013 014 [email or web address] Not available 4 10:49:57 Procedures None recorded. Surgeries None recorded. Imaging None recorded. Medication Orders Retin-A 0.05 % topical cream 2012 013 [facility], [address] [facility], [place], [address], 4 08:45:06 clindamyc in 1 %-benzoyl peroxide 5 % topical gel 2012 013 [facility] [address], [place], [address], 4 08:45:07 Retin-A 0.05 % topical cream 2011 012 [facility]20[facility], [address], [place], [address], 3 03:16:07 clindamyc in 1 %-benzoyl peroxide 5 % topical gel 2011 012 [facility]20[facility], [address], [place], [address], 3 03:16:07 Bactrim DS 800 mg-160 mg tablet 2011 012 [facility] [address] [facility], [place], [address], 3 03:14:29 cephalexi n 500 mg capsule 2011 012 [facility]2022, [address], [place], [address], 3 03:14:29 Patient TargetsNo targets recorded. Patient Instructions Encounter Date Encounter Id Patient Instructions Last Modified By Organization Details Last Modified Time 08/26/2011 [id number] HOT SOAKS AND CA LL IF INF SPREADS. [email or web address] Not available 08/26/2011 16:50:47 12/02/2011 [id number] DECLINES FURTHER IMMUNIZATIONS. ON WELLBUTRIN --- BY DR. MI. CHONG ON NATURAPATHIC SUPPLEMENTS NEEDS TO TAKE CALCIUM SUPP EATS NO DAIRY PRODUCTS- DOING BRAIN BALANCING DIET. MOM SAYS HE CLEARLY HAS MORE TICS WITH A FULL WILLIS. [email or web address] Not available 12/02/2011 15:56:21 10/24/2012 [id number] UNCLEAR EXACTLY WHAT IS GOING ON HERE, BUT THIS WARRENTS FURTHER EVAL. WILL DO SCREENING LABS BEYOND WHAT WAS DONE IN ER AND WAS NORMAL. HAD SCRRENING FOR MET PROBLEMS WELL DRUG SCREENING. WILL SEE DR RODERICK SALINAS IN 2 DAYS. [email or web address] Not available 10/24/2012 17:51:38 12/01/2012 [id number] ON WELLBUTRIN. SEES SEBAS VAUGHN.ZATIONS. MOM DECLINES FURTHER IMMUNIZATIONS SUGGEST CLARITAN OR ZYRTEC QHS. [email or web address] Not available 12/01/2012 14:18:26 11/29/2013 [id number] immunization: wh at you need to know [email or web address] Not available 11/29/2013 09:21:42 Well Visit, Ages 18 to 65: Care Instructions [email or web address] Not available 11/29/2013 09:21:42 STILL WISHES TO DEFER VACCINES PSYCHIATRIST IS ORDERING LABS F/U TO HIS ZYPREXA. HAD GLUCOSE 104 AND ELEVATED PROLACTIN OF 22. PSYCHIATRIST WILL F/U ON THESE ACCORDING TO MOM. WILL ORDER HGBA1C ALONG WITH NEXT BLOODWORK. NEEDS CALCIUM/VIT D SUPP BID. [email or web address] Not available 11/29/2013 09:21:42 Reason for Referral Referring Physician: Siva Patel, Pediatric Medicine, Encounter Date: 11/29/2013 Results Created Date Observation Date Name Description Value Unit Range Abnormal Flag Note LastModifiedBy Organization Detail LastModifiedTime 08/26/19 12 08/29/2011 cultu re, wound and gram stain source Unspec ified Not Available [facility] (Acquired By [employer], Please Contact Your [facility]) [address] [place] [address] #[facility], [place], [address], 08/29/2011 09:00:09 08/26/19 12 08/29/2011 cultu re, wound and gram stain special requests R FOREAR M Not Available [facility] (Acquired By [employer], Please Contact Your [facility]) [address] [place] [address] [address], [place], [address], 08/29/2011 09:00:09 08/26/19 12 08/29/2011 cultu re, wound and gram stain gram stain suggestive of many neutr ophil s no squam ous cells red blood cells no bacte rasta Not Available [facility] (Acquired By [employer], Please Contact Your [facility]) [address] [place] [address] [address], [place], [address], 08/29/2011 09:00:09 08/26/19 12 08/29/2011 cultu re, wound and gram stain culture abnormal methi cilli n resis tant staph aureu s (MRSA ) this isola te was teste d for induc ible clind amyci n resis tance by the D-tressa t Not Available [facility] ([facility], Please Contact Your [facility]) [address] [place] [address] #[facility], [place], [address], 08/29/2011 09:00:09 08/26/19 12 08/29/2011 cultu re, wound and gram stain status FINAL 08/28 Not Available [facility] ([facility], Please Contact Your [facility]) [address] [place] [address] [place] [address], [address], 08/29/2011 09:00:09 08/26/19 12 08/29/2011 susce ptibi lity organism methi cilli n resis tant staph aureu s (MRSA ) this isola te was teste d for induc ible clind amyci n resis tance by the D-tressa t Not Available [facility] ([facility], Please Contact Your [facility]) [address] [place] [address] #[facility], [place], [address], 08/29/2011 09:00:09 08/26/19 12 08/29/2011 susce ptibi lity method SUSCEP TIBILI TY Not Available [facility] ([facility], Please Contact Your [facility]) [address] [place] [address] [place] [address], [address], 08/29/2011 09:00:09 08/26/19 12 08/29/2011 susce ptibi lity amoxicillin/ clavulanic R Not Available [facility] ([facility], Please Contact Your [facility]) [address] [place] [address] [address] [place] [address], [address], 08/29/2011 09:00:09 08/26/19 12 08/29/2011 susce ptibi lity cefazolin R Not Available [facility] ([facility], Please Contact Your [facility]) [facility] [facility] [address], [place], [address], 08/29/2011 09:00:09 08/26/19 12 08/29/2011 susce ptibi lity clindamycin S Not Available [facility] ([facility], Please Contact Your [facility]) [facility] [facility] [address], [place], [address], 08/29/2011 09:00:09 08/26/19 12 08/29/2011 susce ptibi lity daptomycin S Not Available [facility] ([facility], Please Contact Your [facility]) [facility] [facility] [address], [place], [address], 08/29/2011 09:00:09 08/26/19 12 08/29/2011 susce ptibi lity erythromycin R Not Available [facility] ([facility], Please Contact Your [facility]) [facility] [facility] [address], [place], [address], 08/29/2011 09:00:09 08/26/1908/29/2011 susce ptibi lity levofloxacin R Not Available [facility] ([facility], Please Contact Your [facility]) [facility] [facility] [address], [place], [address], 08/29/2011 09:00:09 08/26/1908/29/2011 susce ptibi lity linezolid S Not Available [facility] ([facility]quired [facility], Please Contact Your [facility]) [facility], [place], [address], 08/29/2011 09:00:09 08/26/19 12 08/29/2011 susce ptibi lity oxacillin R Not Available [facility] ([facility], Please Contact Your [facility]) [facility] [facility] [address], [place], [address], 08/29/2011 09:00:09 08/26/19 12 08/29/2011 susce ptibi lity tetracycline S Not Available [facility] ([facility], Please Contact Your [facility]) [facility] [facility] [address], [place], [address], 08/29/2011 09:00:09 08/26/19 12 08/29/2011 susce ptibi lity trimeth/sulf a S Not Available [facility] ([facility], Please Contact Your [facility]) [facility] [facility] [address], [place], [address], 08/29/2011 09:00:09 08/26/19 12 08/29/2011 susce ptibi lity vancomycin S Not Available [facility] ([facility], Please Contact Your [facility]) [address] [place] [address] [address], [place], [address], 08/29/2011 09:00:09 10/25/19 13 10/24/2012 imagi ng/di agnos tic resul t No observ ation record ed. [email or web address] Not Available 2012 17:51:39 11/28/19 18 11/27/2017 XR, ankle No observ ation record ed. [email or web address] [address], [address], 11/28/2017 08:09:25 04/23/19 19 04/23/2018 US, thyro id No observ ation record ed. [email or web address] [address], [address], 04/24/2018 07:16:27 Result Notes None recorded. Problems Name Problem SNOMED Code Status Onset Date Resolution Date Notes Provider Name and Address Organization Details Recorded Time Altered mental status 223195092 Completed 12/01/2012 Siva Patel MD [address] [place] [address], [place], [address] , [place] [facility] 3 13:55:22 Immunizati on refused Active Chhaya Cathy [facility] 4 08:02:21 Cellulitis and abscess of face 448519072 Completed 12/02/2011 Not Available [facility] 3 03:01:56 Acne 00070273 Active Siva Patel MD [address] [place] [address], , [facility] 3 14:18:25 Autism spectrum disorder 97154634 Active Siva Patel MD [address] [place] [address], , [facility] 4 09:21:41 Viral disease 64255188 Completed 200711/28/2010 Not Available [facility] 3 03:01:56 Vlad de la Tourette's syndrome 0008619 Active 2007 Siva Patel MD [address] [place] [address], , [facility] 4 09:21:41 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 Medical Equipment None Reported. Allergies Allergen ID Allergen Name Allergen Category Reaction Reaction Severity Criticality Documentation Date Start Date Code Code System Note Provider Name and Address Organization Details Recorded Time 97044 cow milk allergeni c extract food,medi cation Not available Not available Not available 08/26/2011 85182 5 RxNorm GARCIA E IN MENTA L STATU S - FEEL S ROXANNE Morgan [facility] 4 08:45:48 Medications Name Sig Start Date Stop Date Status Note LastModified by Organization Details LastModified Time Zyprexa 10 mg tablet active Not Available Not Available No t Available hydrocortis one valerate 0.2 % topical cream active Not Available Not Available Not Available tretinoin 0.05 % topical cream APPLY TO THE AFFECTED AREAS BY TOPICAL ROUTE ONCE DAILY AT BEDTIME active Not Available Not Available No t Available clindamycin 1 %-benzoyl peroxide 5 % topical gel APPLY BY TOPICAL ROUTE IN THE MORNING. active Not Available Not Available No t Available ofloxacin 0.3 % ear drops active Not Available Not Available Not Available cephalexin 500 mg capsule Take 1 capsule 3 times a day by oral route for 10 days. 09/04 completed Not Available Not Available Not Available Risperdal 0.25 mg tablet active Not Available Not Available Not Available Zyprexa 7.5 mg tablet active Not Available Not Available No t Available Zyprexa 2.5 mg tablet active Not Available Not Available No t Available Zyprexa 5 mg tablet active Not Available Not Available No t Available ibuprofen 600 mg tablet active Not Available Not Available Not Available neomycin-po lymyxin-hyd rocort 3.5 mg-10,000 unit/mL-1 % ear drops,susp active Not Available Not Available N ot Available Bactrim DS 800 mg-160 mg tablet Take 1 tablet every 12 hours by oral route for 10 days. 09/04 completed Not Available Not Available Not Available escitalopra m 10 mg tablet active Not Available Not Available Not Available Strattera 25 mg capsule active Not Available Not Available Not Available Strattera 40 mg capsule active Not Available Not Available Not Available Wellbutrin XL 150 mg 24 hr tablet, extended release active Not Available Not Available Not Available Lexapro 5 mg tablet active Not Available Not Available No t Available Flovent HFA 110 mcg/actuati on aerosol inhaler active Not Available Not Available Not Available multivitami n active Not Available Not Available Not Available ProAir HFA 90 mcg/actuati on aerosol inhaler active Not Available Not Available Not Available Benzaclin Pump 1 %-5 % topical gel Apply by topical route. bid active Not Available Not Available No t Available Intuniv ER 1 mg tablet,exte nded release active Not Available Not Available Not Available Aerochamber Plus Flow-Vu active Not Available Not Available Not Available Vitals Date Recorded Body weight Body temperature Systolic And Diastolic Provider Name and Address Organization Details Last Updated DateTime 10/24/2012 52130.1840 08 g 98.4 [degF] 112/76 mm[Hg] Bettie Sarabia R.N. [place] [facility] 10/24/2012 17:05:19 Date Recorded Body height Body mass index (BMI) Body weight Systolic And Diastolic Provider Name and Address Organization Details Last Updated DateTime 11/29/2013 179.705 cm 25.8 kg/m2 44581.559 132 g 122/58 mm[Hg] Chhaya Morgan [facility] 11/29/2013 08:45:07 Date Recorded Body height Body weight Body mass index (BMI) Systolic And Diastolic Provider Name and Address Organization Details Last Updated DateTime 12/02/2011 176.53 cm 46600.465 534 g 20.1 kg/m2 110/62 mm[Hg] Heather Bennett L.P.N. [facility] 12/02/2011 15:21:02 Date Recorded Body height Body weight Body mass index (BMI) Systolic And Diastolic Provider Name and Address Organization Details Last Updated DateTime 12/01/2012 177.8 cm 19757.040 24 g 21.8 kg/m2 118/60 mm[Hg] Elaine Leeann [facility] 12/01/2012 13:39:12 Social History Question Answer Notes LastModified by Organizat ion Details LastModified Time Tobacco Smoking Status Never Smoker Elaine Bradshaw [facility] 12/01/2012 13:42:58 Siblings Names And Birthdates DIARA 06/01/97 Information not available 11/28/2012 Parent's Name DORIANA Information not available 11/28/2012 Parent's Name AL Information not available 11/28/2012 Are You Passively Exposed To Smoke? No [email or web address] Information not available 12/01/2012 Sex: Unknown Functional Status None recorded. Mental Status None recorded. Family History Relationship Description Onset Age of this Age Resolved Age Notes LastModified by Organization Details LastModified Time Mother Hypercholest erolemia [email or web address] Not available 2013 09:43:02 Maternal Grandmother Autoimmune disease [place] Not available 2013 09:43:02 Maternal Grandmother Diabetes mellitus TYPE 2 [place] Not available 2013 09:43:02 Maternal Grandmother Hypercholest erolemia [place] Not available 2013 09:43:02 Maternal Grandmother Obese [place] Not available 11/04 09:43:02 Father Mental disorder ADHD, MOOD DISORD ER [place] Not available 11/29/2013 09:43:02 Maternal Grandfather Obese [place] Not available 11/04 09:43:02 Maternal Grandfather Mental disorder BIPOLA R TYPE 2 [email or web address] Not available 11/29/2013 09:43:02 Paternal Grandfather Mental disorder [place] Not available 2013 09:43:02 Notes:UPDATED 11/29/13 Medical History Condition Response ADHD Y DEVELOPMENTAL/ BEHAVIORAL PROBLEMS Y Immunizations Vaccine Type Date Status Note Provider Nam e and Address Organization Details Recorded Time DTaP, unspecified formulation 4 completed Not Available [facility] 02/07/2011 03:17:38 IPV 5 completed Not Available [facility] 02/07/2011 03:17:38 MMR 8 completed Not Available [facility] 02/07/2011 03:17:38 Hib, unspecified formulation 8 completed Not Available [facility] 02/07/2011 03:17:38 DTaP, unspecified formulation 5 completed Not Available [facility] 02/07/2011 03:17:38 Hib, unspecified formulation 5 completed Not Available [facility] 02/07/2011 03:17:38 DTaP, unspecified formulation 8 completed Not Available [facility] 02/07/2011 03:19:09 Hib, unspecified formulation 8 completed Not Available [facility] 02/07/2011 03:17:38 IPV 8 completed Not Available [facility] 02/07/2011 03:17:38 Hep B, unspecified formulation 8 completed Not Available [facility] 02/07/2011 03:17:38 Hib, unspecified formulation 4 completed Not Available [facility] 02/07/2011 03:17:38 DTaP, unspecified formulation 8 completed Not Available [facility] 02/07/2011 03:17:38 OPV, trivalent 4 completed Not Available [facility] 02/07/2011 03:17:38 Hep B, unspecified formulation 8 completed Not Available [facility] 02/07/2011 03:17:38 IPV 8 completed Not Available [facility] 02/07/2011 03:17:38 Past Encounters Encounter ID Performer Location Encounter Start Date Encounter Closed Date Diagnosis/Indication Diagnosis SNOMED-CT Code Diagnosis ICD10 Code Diagnosis IMO Codes Diagnosis Note [id number] Nilesh Wilkes MD [place] [address] 2 06/02/2007 09:02:21 06/02/2007 10:04:25 [id number] Sophia Wang MD [place] [address] 2 07/12/2007 14:54:15 07/12/2007 16:09:01 [id number] Siva Patel MD [place] [address] 2 08/02/2008 15:01:40 08/02/2008 15:41:26 [id number] Siva Patel MD [place] [address] 2 08/30/2009 15:22:44 08/30/2009 16:40:18 [id number] Siva Patel MD [place] [address] 2 11/28/2010 15:42:14 11/28/2010 16:20:56 [id number] Siva Patel MD [place] [address] 2 08/26/2011 16:18:05 08/26/2011 17:02:17 [id number] Siva Patel MD [place] [address] 2 12/02/2011 15:02:40 12/02/2011 16:05:18 [id number] Siva Patel MD [place] [address] 2 10/24/2012 16:37:42 10/24/2012 18:00:57 Altered mental status 686511157 Autism spe ctrum disorder 97227789 HAS ASPERGER'S SYNDROME. Vlad de la Tourette's syndrome 9197520 [id number] Siva Patel MD [place] [phone] 12/01/2012 13:32:46 12/01/2012 14:28:36 Adult health examination 813282697 Autism spe ctrum disorder 28391538 Child atte ntion deficit disorder 606331352 Obsessive- compulsive disorder 122612009 Vlad de la Tourette's syndrome 1790213 Acne [id number] Siva Patel MD [address] [address] 11/29/2013 08:38:20 11/29/2013 11:59:38 Adult health examination 481261586 Autism spe ctrum disorder 79103931 Child atte ntion deficit disorder 024649545 Obsessive- compulsive disorder 007968156 Vlad de la Tourette's syndrome 1676869 Health Concerns Section Related Observation LastModified by Organization Detai ls LastModified Time None Recorded Concern Status LastModified by Organization Details LastModified Time None Recorded Advance Directives Directive None Recorded Payers Insurance Date Sequence Insurance Name Policy Number Policy Carpenter Covered Member ID Carpenter Member ID Guarantor Name 11/18/2013 1 [place] [facility] FAMILY [facility] - WILLY Betts (MEDICAID HMO) [id number] Doroteo Daugherty [id number] [facility] 11/18/2013 2 [place] Doroteo Daugherty [id number] [facility] 11/18/2013 1 [facility] WILLY Daugherty [id number] [facility] Dat 11/26/2013 1 [place] Daugherty [id number] [facility] Notes Date Note Type Note Provider Name and Address Organization Details Recorded Time 08/26/2011 text/html RS Sick Visit Narrative HistoryReported by PatientFIRST NOTICE PIMPLE-LIKE AREA TO R FOREARM 5 DAYS AGO, HAS PROGRESSIVELY GOTTEN LARGER AND MORE INFLAMMED. DID HAVE SIMILAR AREA TO L ARM ABOUT 1 MONTH AGO, NEVER THIS SEVERE AND SEEMS TO HAVE MOSTLY RESOLVED. DID HAVE ST/BRAR EARLIER LAST WEEK BUT FEELS FINE NOW. OTHERWISE FEELING WELL. Siva Patel MD [address] [place] [address], [address], [facility] 08/26/2011 16:52:58 10/24/2012 text/html RS Sick Visit Narrative HistoryReported by Patient5 DAYS AGO WAS SEEN IN [facility] ER FOR ALTERED MENTAL STATUS. MOM REPORTS HE IS STILL NOT HIMSELF; ACTING OFF. FOR EXAMPLE MEMORY, AND PROCESSING OFF FROM HIS NORMAL. TODAY HAD A TEMP OF 99, SLEEPING A LOT, BODY ACHES, SLIGHT H/A. + LOOSE STOOLS. DECREASE IN EATNG AND DRINKING. +URINE OUTPUT. 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 NO BRAR, NO DIZZYNESS. Siva Patel MD [address] [place] [address], [phone], [facility] 10/24/2012 17:52:23
[2025-03-23 08:27] LABS: HBS Num1 9.49 mIU/mL (0-7.99); HBsAGNum1 0.34 S/CO (0.00-0.99); HIV Num 1 0.06 S/CO (0.00-0.99); Hepatitis B Surface Antigen Negative (Negative); ~HepC Num1 0.08 S/CO (0.00-0.79); ~Hepatitis C Antibody Nonreactive (Nonreactive)
[2025-03-23 08:42] LABS: Syphilis Screen Nonreactive (Nonreactive)
[2025-03-23 10:39] LABS: HBS Num2 9.37 mIU/mL (0-7.99); HBS Num3 10.19 mIU/mL (0-7.99); ~Hepatitis B Surface Antibody GRAYZONE (Nonreactive)
[2025-03-26 13:14] LABS: Vitamin D 25-OH, D2 <4 ng/mL; Vitamin D 25-OH, D3 48 ng/mL; Vitamin D 25-OH, Total 48 ng/mL (30-100)
== END 2025-03-22 10:45 | disposition home or self-care (01) ==
LOC: HO.HKASLDS 10:44
PROVIDERS: PCP Student in an Organized Health Care Education/Training Program; Visit Provider Student in an Organized Health Care Education/Training Program
DX: Z28.21 Immunization not carried out because of patient refusal (principal); Z13.9 Encounter for screening, unspecified; F41.9 Anxiety disorder, unspecified; F90.9 Attention-deficit hyperactivity disorder, unspecified type; F32.A Depression, unspecified; E66.9 Obesity, unspecified; F95.2 Tourette's disorder; R00.0 Tachycardia, unspecified; B35.9 Dermatophytosis, unspecified; G47.9 Sleep disorder, unspecified; G47.30 Sleep apnea, unspecified; F84.0 Autistic disorder; F42.9 Obsessive-compulsive disorder, unspecified; Z81.8 Family history of other mental and behavioral disorders; Z79.899 Other long term (current) drug therapy; Z68.38 Body mass index [BMI] 38.0-38.9, adult
CPT/HCPCS: 36415; 80053; 80061; 81001; 82306; 82607; 82746; 83036; 83735; 84443; 85025; 86706; 86780; 86803; 87340; 87389; 90471; 96127